=== PATIENT | female | born 1970 | race Caucasian/White ===

== ENCOUNTER → 2017-02-12 | Outpatient (CLI) | payer OTHER ==
--- NOTE | 2017-02-12 11:25 | KCIC ---
Bilateral digital screening mammogram History: 46-year-old female presents for annual screening mammography. Patient denies personal or family history of breast cancer. Comparison: February 09, 2016 and February 03, 2015 Findings: Breast Tissue Density B :There are scattered areas of fibroglandular density. Bilateral digital mammogram images are obtained with CAD. No suspicious masses, architectural distortion, or grouped microcalcifications are identified. Impression: Negative exam. Recommend screening mammogram in one year. BI-RADS Category 1: Negative. PQRS compliance statement - Patient information was entered into a reminder system with a target due date for the next mammogram. Electronically signed by: Ania Tracy MD (02/12/2017 11:21 AM) [id number]
== END | disposition home or self-care (01) ==
LOC: KCIC MAMMO 08:10
PROVIDERS: ATTEND Obstetrics & Gynecology
DX: Z12.31 Encounter for screening mammogram for malignant neoplasm of breast (principal)
CPT/HCPCS: G0202; 77067

== ENCOUNTER → 2018-02-13 | Outpatient (CLI) | payer OTHER ==
--- NOTE | 2018-02-13 16:17 | KCIC ---
Bilateral digital screening mammograms: Reason for examination: Routine screening. Comparison is made to previous studies dated 02/12/2017 and 02/09/2016. Interpretation was made with the benefit of CAD. The skin and nipples show no abnormalities. No abnormal axillary lymph nodes are seen. The breast parenchyma shows scattered fibroglandular density. (Breast density: Category B.) There are no dominant masses, suspicious calcifications or architectural distortions. Benign calcifications are present. Impression: No evidence of malignancy. Recommend routine screening. BI-RADS category 2: Benign "Our facility is accredited by the [employer] Mammography [employer]." This patient's information has been entered into a reminder system for the patient to be notified with the results of her examination and a target date for the next mammogram. Electronically signed by: Julieth Wilson MD (02/13/2018 3:44 PM) [id number]
== END | disposition home or self-care (01) ==
LOC: KCIC MAMMO 14:55
PROVIDERS: ATTEND Obstetrics & Gynecology
DX: Z12.31 Encounter for screening mammogram for malignant neoplasm of breast (principal)
CPT/HCPCS: 77067

== ENCOUNTER → 2019-02-17 | Outpatient (CLI) | payer OTHER ==
--- NOTE | 2019-02-19 08:19 | KCIC ---
BILATERAL SCREENING MAMMOGRAM History: Routine screening. Comparison: Bilateral mammogram 02/13/2018 and dating back to 2014. Technique: Routine bilateral digital mammogram views were obtained. Findings: Breast Tissue Density B : There are scattered areas of fibroglandular density. There are no dominant masses, suspicious microcalcifications, or architectural distortion. IMPRESSION: No mammographic evidence of malignancy. Recommend routine screening. BI-RADS category 1: Negative. The images were reviewed with computer aided detection. Patient information is entered into the reminder system with a target due date for the next screening mammogram. Mammography is the most sensitive method for finding small breast cancers, but it does not detect them all and is not a substitute for careful clinical examination. A negative mammogram does not negate a clinically suspicious finding and should not result in delay in biopsying a clinically suspicious abnormality. "Our facility is accredited by the [employer] Mamm[employer]." Electronically signed by: Isidro Sun MD (02/19/2019 8:16 AM) [id number]
== END | disposition home or self-care (01) ==
LOC: KCIC MAMMO 09:08
PROVIDERS: ATTEND Obstetrics & Gynecology
DX: Z12.31 Encounter for screening mammogram for malignant neoplasm of breast (principal)
CPT/HCPCS: 77067

== ENCOUNTER → 2020-02-25 | Outpatient (CLI) | payer OTHER ==
--- NOTE | 2020-02-25 15:02 | KCIC ---
Bilateral digital screening mammograms Reason for examination: Routine screening. Comparison is made to previous study dated February 17, 2019 and priors Routine CC and MLO digital views obtained. Interpretation was made with the benefit of CAD. The skin and nipples show no abnormalities. No abnormal lymph nodes are seen. The breast parenchyma i s scattered fibroglandular elements. (Breast density: Category B.) There are no suspicious masses, turner spicious calcifications or architectural distortions. Benign calcifications. Mild nodularity of the s ubareolar and outer breast tissue is stable, benign. Impression: Negative mammogram. Recommend routine screening. BI-RADS Category 2: Benign. "Our facility is accredited by the [employer] Mammography [employer]." This patient's information has been entered into a reminder system for the patient to be notified wit h the results of her examination and a target date for the next mammogram. Electronically signed by: Dio Drummond MD (02/25/2020 3:00 PM) [id number]
== END ==
LOC: KCIC MAMMO 07:49
PROVIDERS: ATTEND Obstetrics & Gynecology
DX: Z12.31 Encounter for screening mammogram for malignant neoplasm of breast (principal)
CPT/HCPCS: 77067

== ENCOUNTER → 2021-03-06 | Outpatient (CLI) | payer OTHER ==
--- NOTE | 2021-03-06 09:21 | KCIC ---
Bilateral digital screening mammograms: Reason for examination: Routine screening. Comparison is made to previous studies dated back to 02/03/2015. Interpretation was made with the benefit of CAD. The skin and nipples show no abnormalities. No abnormal axillary lymph nodes are seen. The breast par enchyma shows scattered fibroglandular density. (Breast density: Category B.) There are no dominant m asses, suspicious calcifications or architectural distortions. Some benign calcifications are present . Impression: No evidence of malignancy. Recommend routine screening. BI-RADS category 2: Benign "Our facility is accredited by the [employer] Mammography [employer]." This patient's information has been entered into a reminder system for the patient to be notified wit h the results of her examination and a target date for the next mammogram. Electronically signed by: Julieth Wilson MD (03/06/2021 9:18 AM) [email or web address]
== END ==
LOC: KCIC MAMMO 07:49
PROVIDERS: ATTEND Obstetrics & Gynecology
DX: Z12.31 Encounter for screening mammogram for malignant neoplasm of breast (principal)
CPT/HCPCS: 77067